=== PATIENT | male | born 1985 | race Native Hawaiian/Other Pacific Islander ===

== ENCOUNTER 2017-07-19 09:30 | Outpatient (CLI) | payer BC ==
[~2017-07-19 09:30] MED LIST: LISI5TAB10 PO; METF100038 OR; METFORMIN ER1000 MG PO
[2017-07-19 10:00] LABS: PLATELET COUNT 220 K/uL (142-355)
[2017-07-19 10:05] LABS: POTASSIUM 4.6 mmol/L (3.6-5.2)
== END 2017-07-19 22:11 | disposition home or self-care (01) ==
LOC: LABW 09:30
PROVIDERS: Internal Medicine
DX: R19.7 Diarrhea, unspecified (principal); R10.31 Right lower quadrant pain
CPT/HCPCS: 36415; 80053; 81000; 82272; 85027; 87015; 87205; 87206; 87507; Q9963

== ENCOUNTER 2018-09-24 15:46 | Outpatient (CLI) | payer BC | END 2018-09-24 19:32 | disposition home or self-care (01) | LOC: US 15:46 | DX: M79.604 Pain in right leg (principal) ==

== ENCOUNTER 2023-03-02 15:09 | Outpatient (CLI) | payer BC | END 2023-03-02 19:28 | disposition home or self-care (01) | LOC: CT 15:09 | PROVIDERS: ATTEND Internal Medicine | DX: R31.9 Hematuria, unspecified (principal) ==